=== PATIENT | male | born 1990 | race Caucasian/White ===

== ENCOUNTER 2018-05-24 11:18 | Emergency (ER) | payer SELFPAY ==
--- NOTE | 2018-05-24 12:00 | ED Physician Documentation ---
Dizziness - HISTORIAN Historian: patient - HPI Stated Complaint: dizzy Chief Complaint: Dizziness Additional Information: Patient presents to ED with a 2 week history of dizziness. He states over the past several days the dizziness has worsened. He states when he turns his head to the right the dizziness is worse to the point of having nausea. Timing: gradual onset Duration: intermittent episodes Severity: mild Associated Symptoms: nausea, sense of spinning. denies: hearing loss, ringing in ear, roaring in ear, ear pain, vomiting Decreased Ability to Stand/ Walk: off balance Usually: none Worsened By: movement of head (to right) - ROS CONST: none - PAST HX Past History: none Cardiac Disease: none Surgeries/Procedures: none - SOCIAL HX Smoking History: non-smoker Alcohol Use: none Drug Use: none - FAMILY HX Family History: none - VITAL SIGNS Vital Signs: Vital Signs Temp Pulse Resp BP Pulse Ox 97.9 F 78 14 139/102 99 05/24/18 11:36 05/24/18 11:36 05/24/18 11:36 05/24/18 11:36 05/24/18 11:36 - REVIEWED ASSESSMENTS Nursing Assessment Reviewed: Yes Vitals Reviewed: Yes Dizziness Physical Exam - Physical Exam General Appearance: no distress EENT: pharynx normal, JAME, TM's nml Neck: normal inspection, supple Respiratory: no respiratory distress, breath sounds nml CVS: reg rate & rhythm, heart sounds normal Abdomen: soft, non-tender Skin: warm/dry, normal color Neuro: nml orientation, nml speech, nml cognition Extremities: non-tender, no edema Cranial: nml as tested, no evidence of acute CVA Cerebellar: nml as tested (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 ) Sensorimotor: motor nml, sensation nml Discharge Clincal Impression: Benign paroxysmal positional vertigo of right ear Referrals: Primary Doctor,No [Primary Care Provider] - 2 Days Additional Instructions: 1. [email or web address] 2. Do the exercises as explained in the video listed above 3. Follow up with PCP within 3 days. You may need referral to ENT 4. Return to ER with new or worsening symptoms. Condition: Stable Decision to Admit: NO Date of Decison to Admit: 05/24/18 Decision Time: 12:08
[2018-05-24 12:18] VITALS: BP 140/95
== END 2018-05-24 12:16 ==
LOC: ED 11:18
DX: H81.11 Benign paroxysmal vertigo, right ear (principal)
CPT/HCPCS: 99281